=== PATIENT | female | born 1970 | race Caucasian/White ===

== ENCOUNTER 2018-06-29 22:02 | Emergency (ER) | payer OTHER ==
[~2018-06-29] VITALS: Ht 157.5 cm; Wt 56.7 kg
[2018-06-29 22:08] VITALS: BP 132/84
--- NOTE | 2018-06-29 23:20 | ED GENERAL ADULT ---
History of Present Illness General Chief Complaint: General Adult Stated Complaint: PT NEEDS REFILL ON RX Source: patient Exam Limitations: no limitations Vital Signs & Intake/Output Vital Signs & Intake/Output Vital Signs Date Time Temp Pulse Resp B/P B/P Pulse O2 O2 Flow FiO2 Mean Ox Delivery Rate 06/29 2329 Room Air 06/29 2208 95.7 62 18 132/84 97 Room Air ED Intake and Output 06/30 0000 06/29 1200 Intake Total 0 Output Total Balance 0 Intake, Oral 0 Patient 125 lb Weight Weight Reported by Patient Measurement Method Allergies Coded Allergies: Penicillins (HIVES PER PT 06/29/18) Triage Note: PT FROM HOME C/O OF "MY WAS A PT HERE AND [facility] CANT TAKE US THERE UNTIL THE MORNING, NOW IM STUCK HERE AND NEED MY MEDICATIONS. I NEED MY ANXIETY MEDICATION, MY SEIZURE MEDICATION" PT THEN LOOKED AT BP WHICH IS 132/84 AND STATES "OH LOOK AT THAT ITS ALMOST SEIZURE TIME, I USUALLY RUN EXTREMELY LOW AND YOU KNOW WHAT ELSE, IM GOING TO HAVE MY SCHIZOPHRENIA COME OUT" Triage Nurses Notes Reviewed? yes Onset: Abrupt Duration: minute(s): Timing: constant HPI: 47-year-old female with a history of seizures, schizophrenia, PTSD presenting for her nightly medications. Patient's family member was seen in the emergency department earlier today and they plan on taking a medical cab home together. The medical cab is no longer running for the night and they will be unable to get a ride home until the morning. They will be staying in the emergency department waiting room for the night. The patient does not have her nightly home medications with her and checked in to receive them. She states that she takes 2 mg of Xanax 3 times daily, 100 mg of Seroquel at night, and 150 mg of Lamictal at night. She is currently asymptomatic with no physical complaints. (Marisa Fulton) Past History Travel History Traveled to [place] past 21 day No Medical History Any Pertinent Medical History? see below for history Neurological: seizure Musculoskeletal: SCIATIC PAIN Psychiatric: anxiety, insomnia, schizophrenia, PTSD Surgical History Surgical History: non-contributory Psychosocial History What is your primary language Spanish Tobacco Use: Current Daily Use Daily Tobacco Use Amount/Type: =< 4 Cigarettes daily ETOH Use: denies use Illicit Drug Use: denies illicit drug use Family History Hx Contributory? No (Marisa Fulton) Review of Systems Review of Systems Constitutional: Reports: no symptoms. EENTM: Reports: no symptoms. Respiratory: Reports: no symptoms. Cardiovascular: Reports: no symptoms. GI: Reports: no symptoms. Genitourinary: Reports: no symptoms. Musculoskeletal: Reports: no symptoms. Skin: Reports: no symptoms. Neurological/Psychological: Reports: no symptoms. Hematologic/Endocrine: Reports: no symptoms. Immunologic/Allergic: Reports: no symptoms. All Other Systems: Reviewed and Negative (Marisa Fulton) Physical Exam Physical Exam General Appearance: well developed/nourished, no apparent distress, alert, awake Comments: Gen.: Well-nourished, well-developed, no acute distress. Head: Normocephalic, atraumatic. Eyes: Normal inspection bilaterally Ears: Normal inspection bilaterally Nose: Normal inspection Neck: Normal inspection Lungs: clear to auscultation bilaterally, normnal breath sounds Heart: regular rate and rhythm Abdomen: soft and non-tender Extremities: Normal inspection Neurologic: alert and oriented x3, steady gait Skin: warm and dry Psychiatric: Normal mood and affect, no apparent delusions or hallucinations, behavior appropriate Core Measures ACS in differential dx? No CVA/TIA Diagnosis: No Sepsis Present: No Sepsis Focused Exam Completed? No (Marisa Fulton) Progress Differential Diagnoses I considered the following diagnoses in my evaluation of the patient: [ Medication refill] Plan of Care: Current Medications Sig/Nelly Start time Last Medication Dose Stop Time Status Admin Alprazolam 2 MG ONCE ONE 06/29 2330 UNVr (Xanax) 06/29 2331 Lamotrigine 150 MG ONCE ONE 06/29 2330 UNVr (LaMICtal) 06/29 2331 Quetiapine Fumarate 100 MG ONCE ONE 06/29 2330 UNVr (Seroquel) 06/29 2331 Patient given a single dose of all of her nightly medications. Cleared for discharge. Initial ED EKG: none (Marisa Fulton) Departure Departure Disposition: HOME OR SELF CARE Condition: Stable Clinical Impression Primary Impression: Medication refill Referrals: Unknown (PCP/Family) Additional Instructions: Return to the emergency department for any new or worsening symptoms. Departure Forms: Customer Survey General Discharge Information (Marisa Fulton) PA/RESIDENCE LIFE COORDINATOR Co-Sign Statement Statement: ED Attending supervision documentation- I saw and evaluated the patient. I have also reviewed all the pertinent lab results and diagnostic results. I agree with the findings and the plan of care as documented in the PA's/RESIDENCE LIFE COORDINATOR's documentation. x I have reviewed the ED Record and agree with the PA's/RESIDENCE LIFE COORDINATOR's documentation. [] Additions or exceptions (if any) to the PAs/RESIDENCE LIFE COORDINATOR's note and plan are summarized below: [] (Enoch SUERO,Jose) Critical Care Note Critical Care Note Critical Care Time: non-applicable (Loni JORGENSEN,Marisa)
== END 2018-06-29 23:43 ==
LOC: ERH 22:02
DX: Z76.0 Encounter for issue of repeat prescription (principal); F17.210 Nicotine dependence, cigarettes, uncomplicated; R56.9 Unspecified convulsions; F41.9 Anxiety disorder, unspecified; G47.00 Insomnia, unspecified; F20.9 Schizophrenia, unspecified; F43.10 Post-traumatic stress disorder, unspecified
CPT/HCPCS: 99281

== ENCOUNTER 2018-07-06 12:04 | Emergency (ER) | payer OTHER ==
[~2018-07-06] VITALS: Ht 157.5 cm; Wt 56.7 kg
[2018-07-06 13:13] LABS: ABSOLUTE BASOPHIL COUNT 0 /CUMM (0.0-0.2); ABSOLUTE EOSINOPHIL COUNT 0.2 /CUMM (0.0-0.7); ABSOLUTE GRANULOCYTE CT 3.5 /CUMM (1.4-6.5); ABSOLUTE LYMPH COUNT 3.1 /CUMM (1.2-3.4); ABSOLUTE MONOCYTE COUNT 0.6 /CUMM (0.10-0.60); BASOPHIL % 0.3 % (0.0-2.0); EOSINOPHIL % 2.9 % (0-5); GRANULOCYTE % 46.7 % (42.2-75.2); HEMATOCRIT 32.7 % (37-47); MEAN CORPUSCULAR HGB 29.5 PG (27.0-31.0); MEAN CORPUSCULAR HGB CONC 34.2 G/DL (33.0-37.0); MEAN CORPUSCULAR VOLUME 86.3 FL (81.0-99.0); PLATELET COUNT 266 /CUMM (130-400); RBC DISTRIBUTION WIDTH 15.3 % (11.5-14.5); RED BLOOD CELL CT 3.79 /CUMM (4.20-5.40); WHITE BLOOD CELL COUNT 7.4 /CUMM (4.8-10.8)
[2018-07-06] MEDS ORDERED: LEVOTHYROXINE200 MC1 PO (13:25)
--- NOTE | 2018-07-06 13:30 | ED AMS/SEIZURE/WEAK/DIZZY ---
History of Present Illness General Chief Complaint: Seizure Stated Complaint: SIEZURE LAST PM AND THIS AM Source: patient Exam Limitations: no limitations Vital Signs & Intake/Output Vital Signs & Intake/Output Vital Signs Date Time Temp Pulse Resp B/P B/P Pulse O2 O2 Flow FiO2 Mean Ox Delivery Rate 07/06 1209 98.7 75 18 111/71 98 Room Air Allergies Coded Allergies: Penicillins (HIVES PER PT 06/29/18) Triage Note: 47 YO FEMALE TO TRIAGE FOR EVAL S/P SEIZURE LAST NIGHT AND AGAIN THIS AM. [facility] SHE IS CURRENTLY OUT OF HER ALPRAZALAM AND HER PSYCHISTRIST WONT PERSCRIBE THEM FOR HER ANYMORE. [facility] HAS AN APPT WITH A NEW DR ON TUESDAY. STATES "I FEEL BURNT OUT NOW, YA KNOW HOW YOU FEEL AFTER YOU HAVE A SEUZIRE" Triage Nurses Notes Reviewed? yes HPI: 47-year-old female reportedly having a seizure earlier today. Patient is on benzodiazepines chronically for the past 3 years for PTSD, anxiety, depression. Patient is in the process of transitioning to a new psychiatrist. They have refused to prescribe Xanax which is her benzodiazepine of choice. She has been without medication for the past 3-4 days. Patient diet denies any other systemic complaints at this time. Patient is currently not postictal. Patient denies any loss of bowel or bladder control. Past History Travel History Traveled to [place] past 21 day No Medical History Any Pertinent Medical History? see below for history Neurological: seizure Musculoskeletal: SCIATIC PAIN Psychiatric: anxiety, insomnia, schizophrenia, PTSD Surgical History Surgical History: non-contributory Psychosocial History What is your primary language Arabic Tobacco Use: Current Daily Use Daily Tobacco Use Amount/Type: =< 4 Cigarettes daily Family History Hx Contributory? No Review of Systems Review of Systems Constitutional: Denies: no symptoms. EENTM: Denies: no symptoms. Respiratory: Denies: no symptoms. Cardiovascular: Denies: no symptoms. GI: Denies: no symptoms. Genitourinary: Denies: no symptoms. Musculoskeletal: Denies: no symptoms. Skin: Denies: no symptoms. Neurological/Psychological: Reports: see HPI. Hematologic/Endocrine: Denies: no symptoms. Immunologic/Allergic: Denies: no symptoms. All Other Systems: Reviewed and Negative Physical Exam Physical Exam General Appearance: well developed/nourished, no apparent distress, alert, awake Head: atraumatic, normal appearance Eyes: Bilateral: normal appearance. Neck: normal inspection, supple, full range of motion Respiratory: normal breath sounds, lungs clear Cardiovascular: regular rate/rhythm Gastrointestinal: normal bowel sounds, soft, non-tender Back: normal inspection, normal range of motion Extremities: normal range of motion Neurologic/Psych: awake, alert, oriented x 3, normal mood/affect Skin: intact Core Measures ACS in differential dx? No CVA/TIA Diagnosis No Sepsis Present: No Sepsis Focused Exam Completed? No Progress Differential Diagnosis: seizure, pseudoseizure, benzo withdrawl, electrolyte abnormality Plan of Care: Orders Procedure Date/time Status URINE 07/06 1226 Complete URINE DRUG SCREEN FOR ER ONLY 07/06 1226 Active URINALYSIS 07/06 1226 Complete COMPREHENSIVE METABOLIC PANEL 07/06 1226 Complete CBC WITHOUT DIFFERENTIAL 07/06 1226 Complete Laboratory Tests 07/06/18 1305: Methadone Screen Pending, Barbiturate Screen Pending, Ur Phencyclidine Scrn Pending, Amphetamines Screen Pending, U Benzodiazepines Scrn Pending, Urine Cocaine Screen Pending, Urine Cannabis Screen Pending, Urine Color YEL, Urine Clarity CLDY H, Urine pH 7.0, Ur Specific [place] 1.015, Urine Protein NEG, Urine Ketones NEG, Urine Nitrite NEG, Urine Bilirubin NEG, Urine Urobilinogen 0.2, Ur Leukocyte Esterase SMALL H, Ur Microscopic SEDIMENT EXAMINED, Urine RBC RARE, Urine WBC RARE, Ur Epithelial Cells MANY H, Urine Bacteria FEW H, Urine Hemoglobin NEG, Urine Glucose NEG, Urine Test NEGATIVE 07/06/18 1300: Anion Gap 7, Estimated GFR > 60, BUN/Creatinine Ratio 12.2, Glucose 82, Calcium 9.0, Total Bilirubin 0.2, AST 13 L, ALT 21, Alkaline Phosphatase 71, Total Protein 6.8, Albumin 3.9, Globulin 2.9, Albumin/Globulin Ratio 1.3, CBC w Diff NO MAN DIFF REQ, RBC 3.79 L, MCV 86.3, MCH 29.5, MCHC 34.2, RDW 15.3 H, MPV 7.0 L, Gran % 46.7, Lymphocytes % 42.0, Monocytes % 8.1, Eosinophils % 2.9, Basophils % 0.3, Absolute Granulocytes 3.5, Absolute Lymphocytes 3.1, Absolute Monocytes 0.6, Absolute Eosinophils 0.2, Absolute Basophils 0 47-year-old female with reported history of anxiety, depression, PTSD presents with a self-reported seizure. Patient has a history of seizures when withdrawing from benzodiazepines. Patient recently was started on Xanax. Patient was given prescriptions for Valium, 28 tablets filled on July 03 and June 21, and on June 18 received 67 tablets of Xanax. Patient demonstrates no evidence of traumatic injury. I reviewed patient's prescription monitoring program profile. Is very concerning the patient has had multiple prescriptions for benzodiazepines. This was discussed with the patient. Patient does not like the effect of Valium. I instructed her that Xanax is the most addictive benzodiazepine given her recent prescriptions for Valium, I am unable to provide her with additional prescriptions for any controlled substances. Patient will have routine laboratory analysis to rule out electrolyte abnormality as a cause of her seizure. Patient will need to seek primary care and psychiatric care on a longitudinal basis in order to receive prescriptions for controlled substances. Initial ED EKG: none Departure Departure Disposition: HOME OR SELF CARE Condition: Stable Clinical Impression Primary Impression: Seizure Secondary Impressions: Benzodiazepine withdrawal Qualifiers: Complication of substance-induced condition: with unspecified complication Qualified Code: F13.239 - Sedative, hypnotic or anxiolytic dependence with withdrawal, unspecified Referrals: Unknown (PCP/Family) Departure Forms: Customer Survey General Discharge Information
[2018-07-06 14:04] VITALS: BP 118/70
== END 2018-07-06 14:04 ==
LOC: ERH 12:04
PROVIDERS: Physician Assistant
DX: R56.9 Unspecified convulsions (principal); F13.239 Sedative, hypnotic or anxiolytic dependence with withdrawal, unspecified; F17.210 Nicotine dependence, cigarettes, uncomplicated; F41.9 Anxiety disorder, unspecified; G47.00 Insomnia, unspecified; F20.9 Schizophrenia, unspecified; F43.10 Post-traumatic stress disorder, unspecified
CPT/HCPCS: 80307; 81001; 81025